=== PATIENT | male | born 1980 | race Caucasian/White ===

== ENCOUNTER 2017-08-08 00:19 | Emergency (ER) | payer OTHER ==
[~2017-08-08] VITALS: Ht 172.7 cm; Wt 75.0 kg
[2017-08-08 00:21] VITALS: BP 129/84; PULSE 85; RESP 16; TEMP 98.5; O2SAT 98
--- NOTE | 2017-08-08 01:19 | PD ---
HPI Chief Complaint: Skin Problem Time Seen by Provider: 01:19 Travel History International Travel<30 days: No Contact w/Intl Traveler<30days: No Traveled to known affect area: No History of Present Illness HPI 37-year-old male came to the emergency room with history of severe pain in his bilateral armpits. He noticed some bumps there and thinks it's probably inflamed lymph nodes. Patient does not shave and this is never happened to him before. Vital signs are stable. Patient came in because of the severe pain. Also scared not sure what was going on. No history of fever or chills. No history of similar symptoms in the past. No known sick contacts. [facility] Past Medical History Narrative Medical List of his past medical, surgical, social and family history is reviewed from the nursing note. Medical History: Denies Significant Hx Diminished Hearing: No Tetanus Vaccination: Unknown Influenza Vaccination: No Social History Alcohol Use: Yes (daily) Tobacco Use: Yes Substance Use: No Allergies-Medications (Allergen,Severity, Reaction): Coded Allergies: No Known Allergies (Unverified , 08/08/17) Comments No known drug allergies. Reported Meds & Prescriptions Reported Meds & Active Scripts Active Ibuprofen 600 Mg Tab 600 Mg PO Q6H PRN Bactrim DS (Sulfamethoxazole-Trimethoprim) 800-160 Mg Tab 1 Tab PO BID Narrative Medication List of his home medications reviewed from the nursing note. Review of Systems Except as stated in HPI: all other systems reviewed are Neg Skin: Positive Lesions Physical Exam Narrative GENERAL: Awake, alert, moderate distress SKIN: Focused skin assessment warm/dry. Bilateral armpits has extremely tender multiple erythematous tiny papular lesions that were extremely tender to touch. No underlying fluctuance or abscesses noticed HEAD: Atraumatic. Normocephalic. EYES: Pupils equal and round. No scleral icterus. No injection or drainage. ENT: No nasal bleeding or discharge. Mucous membranes pink and moist. NECK: Trachea midline. No JVD. CARDIOVASCULAR: Regular rate and rhythm. No murmur appreciated. RESPIRATORY: No accessory muscle use. Clear to auscultation. Breath sounds equal bilaterally. GASTROINTESTINAL: Abdomen soft, non-tender, nondistended. Hepatic and splenic margins not palpable. MUSCULOSKELETAL: No obvious deformities. No clubbing. No cyanosis. No edema. NEUROLOGICAL: Awake and alert. No obvious cranial nerve deficits. Motor grossly within normal limits. Normal speech. PSYCHIATRIC: Appropriate mood and affect; insight and judgment normal. Data Data Last Documented VS Vital Signs Date Time Temp Pulse Resp B/P (MAP) Pulse Ox O2 Delivery O2 Flow Rate FiO2 08/08/17 00:21 98.5 85 16 129/84 (99) 98 Room Air Orders Orders Basic Metabolic Panel (Bmp) (08/08/17 01:22) Complete Blood Count With Diff (08/08/17 01:22) Blood Culture (08/08/17 01:22) Ketorolac Inj (Toradol Inj) (08/08/17 01:30) Clindamycin Inj (Cleocin Inj) (08/08/17 01:30) Sulfamet-Trimeth Ds 800-160 Mg (Bactrim (08/08/17 01:30) C-Reactive Protein (Crp) (08/08/17 01:22) Labs Laboratory Tests Test 08/08/17 01:45 White Blood Count 14.3 TH/MM3 Red Blood Count 4.29 MIL/MM3 Hemoglobin 13.9 GM/DL Hematocrit 41.6 % Mean Corpuscular Volume 97.0 FL Mean Corpuscular Hemoglobin 32.3 PG Mean Corpuscular Hemoglobin Concent 33.3 % Red Cell Distribution Width 12.7 % Platelet Count 217 TH/MM3 Mean Platelet Volume 8.1 FL CBC Comment AUTO DIFF Differential Total Cells Counted 100 Neutrophils % (Manual) 72 % Band Neutrophils % 3 % Lymphocytes % 13 % Monocytes % 9 % Eosinophils % 2 % Neutrophils # (Manual) 10.9 TH/MM3 Promyelocytes 1 % Differential Comment FINAL DIFF MANUAL Platelet Estimate NORMAL Platelet Morphology Comment NORMAL Blood Urea Nitrogen 8 MG/DL Creatinine 0.98 MG/DL Random Glucose 116 MG/DL Calcium Level 8.7 MG/DL Sodium Level 140 MEQ/L Potassium Level 4.6 MEQ/L Chloride Level 107 MEQ/L Carbon Dioxide Level 27.3 MEQ/L Anion Gap 6 MEQ/L Estimat Glomerular Filtration Rate 86 ML/MIN C-Reactive Protein 0.86 MG/DL [facility] Medical Decision Making Medical Screen Exam Complete: Yes Emergency Medical Condition: Yes Medical Record Reviewed: Yes Differential Diagnosis Folliculitis, cellulitis Narrative Course 3:22 AM blood test results are back. Patient has elevated white blood cell count with some left shift. CRP slightly elevated. He was given IV clindamycin and by mouth Bactrim. I'm comfortable discharging him home on Bactrim prescription. He's been given instructions for these. Procedures EKG Prior to Arrival: No Diagnosis Primary Impression: Folliculitis Referrals: Primary Care Physician 2 days Additional Instructions: please return to the ER if the condition worsens or any other new concerns. Otherwise follow-up with your primary care next couple days. Take the medication as per the prescription direction. Med/Other Pt SpecificInfo: Prescription(s) given Scripts Ibuprofen (Ibuprofen) 600 Mg Tab 600 MG PO Q6H Y for Pain/Inflammation, #40 TAB 0 Refills Prov: Elizabeth Ruiz MD 08/08/17 Sulfamethoxazole-Trimethoprim (Bactrim DS) 800-160 Mg Tab 1 TAB PO BID for Infection, #20 TAB 0 Refills Prov: Elizabeth Ruiz MD 08/08/17 Disposition: 01 DISCHARGE HOME Condition: Stable Elizabeth Ruiz MD Aug 08, 2017 01:19
[2017-08-08] MEDS ORDERED: KETOROLAC TROMETHAMINE 30 MG/ML (IVP) VIAL IVP ONE (01:30)
[2017-08-08] MEDS ORDERED: CLINDAMYCIN PHOS 900 MG/6 ML VIAL IM ONE (01:30)
[2017-08-08] MEDS ORDERED: SULFAMETHOXAZOLE-TRIMETHOPRIM DS 800-160 MG TAB PO ONE (01:30)
[2017-08-08 02:00] LABS: HEMATOCRIT 41.6 % (39.0-51.0); MEAN CORPUSCULAR HEMOGLOBIN 32.3 PG (27.0-34.0); MEAN CORPUSCULAR HGB CONC 33.3 % (32.0-36.0); PLATELET COUNT 217 TH/MM3 (150-450); RED BLOOD COUNT 4.29 MIL/MM3 (4.50-5.90); RED CELL DISTRIBUTION WIDTH 12.7 % (11.6-17.2); WHITE BLOOD COUNT 14.3 TH/MM3 (4.0-11.0)
[2017-08-08 02:03] LABS: HEMO FLAGS AUTO DIFF
[2017-08-08 02:17] LABS: BICARBONATE 27.3 MEQ/L (21.0-32.0)
[2017-08-08 02:18] LABS: POTASSIUM 4.6 MEQ/L (3.5-5.1)
[2017-08-08 02:56] LABS: BANDS 3 % (0-6); EOSINOPHILS 2 % (0-4); NEUTROPHIL # MANUAL DIFF 10.9 TH/MM3 (1.8-7.7); PLATELET ESTIMATE SMEAR NORMAL (NORMAL); PLATELET MORPHOLOGY NORMAL (NORMAL); POLYS (SEG NEUTROPHILS) 72 % (16-70); PROMYELOCYTES 1 % (0-0); SCAN/DIFF FINAL DIFF MANUAL; WBC DIFF SAMPLE 100
[2017-08-08] MEDS ORDERED: BACT800T5 PO (03:16)
[2017-08-08] MEDS ORDERED: IBUP-232 PO (03:16)
== END 2017-08-08 03:37 | disposition home or self-care (01) ==
LOC: NEPC 00:19
DX: L73.8 Other specified follicular disorders (principal); M79.621 Pain in right upper arm; M79.622 Pain in left upper arm; D72.829 Elevated white blood cell count, unspecified; R79.89 Other specified abnormal findings of blood chemistry; Z72.0 Tobacco use
CPT/HCPCS: 80048; 85007; 85027; 86140; 87040; 96372; 96374; 99284; J1885